=== PATIENT | male | born 1965 | race Caucasian/White ===

== ENCOUNTER 2018-12-30 20:59 | Inpatient (IN) ==
[2018-12-30] MEDS ORDERED: *HR* Heparin 5,000 UNIT/ML VIAL IVP PRN (21:20)
[2018-12-30] MEDS ORDERED: *HR* Heparin 5,000 UNIT/ML VIAL IVP ONE (21:20)
[2018-12-30] MEDS ORDERED: *HR* Ticagrelor 90 MG TABLET PO ONE (21:21)
[2018-12-30] MEDS ORDERED: Aspirin 81 MG TAB.CHEW PO STA (21:22)
[2018-12-30 21:26] LABS: Basophils # 0.1 K/mcL (0.0-0.2); Basophils % 0.5 %; Eosinophils # 0.2 K/mcL (0.0-0.6); Eosinophils % 1.6 %; Hematocrit 43.3 % (37.5-50.1); Hemoglobin 14.1 g/dL (12.9-16.9); Immature Granulocytes % 0.8 % (0-4); Lymphocytes # 2.2 K/mcL (0.6-4.6); Lymphocytes % 21.4 %; Mean Corpuscular HGB Conc 32.6 g/dL (31.6-35.5); Mean Corpuscular Hemoglobin 27.9 pg (28.0-33.3); Mean Corpuscular Volume 85.7 fL (83.0-100.0); Mean Platelet Volume 10.6 fL (9.4-12.4); Monocytes # 0.9 K/mcL (0.0-1.3); Monocytes % 8.8 %; Platelet Count 229 K/mcL (140-400); Red Blood Count 5.05 M/mcL (4.19-5.50); Segmented Neutrophils % 66.9 %; White Blood Count 10.5 K/mcL (4.3-11.1)
--- NOTE | 2018-12-30 21:29 | Emergency Department Note ---
Disposition Clinical Impression: Elevated troponin, Acute electrocardiogram changes Chest pain Qualifiers: Chest pain type: unspecified Qualified Code(s): R07.9 - Chest pain, unspecified Disposition: Admitted As Inpatient Condition: Fair Time of Disposition: 00:37 General Adult HPI - General Chief complaint: ED Arrhythmia/Palpitations Stated complaint: Chest Pain Time Seen by Provider: 12/30/18 21:09 Source: patient Mode of arrival: wheelchair Limitations: no limitations Nursing Notes Reviewed: Yes Vital Signs Reviewed: Yes - History of Present Illness HPI Narrative: Patient is a 53-year-old male with no known past medical history presents ED for evaluation of chest pain that is substernal and pressure-like associated dyspnea and diaphoresis that started 1 hour prior to arrival. States he has no other medical history however he has not seen a primary care physician in his adult life. Denies known history of any coronary artery disease. Pain is a 7 out of 10. Pain Scale: 5 - Related Data Home Medications Medication Instructions Recorded Confirmed No Known Home Drugs 12/30/18 12/30/18 Allergies Allergy/AdvReac Type Severity Reaction Status Date / Time No Known Allergies Allergy Verified 05/01/17 17:07 All systems ED: reviewed and negative except as stated. Review of Systems: As Per HPI Constitutional: Denies: fever Cardiovascular: Reports: chest pain. Denies: palpitations, dyspnea on exertion, edema Respiratory: Reports: dyspnea. Denies: cough, wheezes, hemoptysis, sputum production Gastrointestinal: Denies: abdominal pain, nausea, vomiting, diarrhea Past Medical History - Past Medical History Attestation: Yes The following information was validated with the patient. Medical history: Reports: non-contributory Surgical history: Reports: non-contributory Psychiatric history: Reports: no psych history - Social History Smoking Status: Never smoker Smokeless Tobacco Status: No Alcohol use: Reports: none Drug use: Reports: none Physical Exam CONSTITUTIONAL: A&O X 3, in no apparent distress. Anxious appearing. HEAD: Normocephalic; atraumatic EYES: PERRL, no scleral icterus NOSE: The nose is normal in appearance without rhinorrhea NECK: No JVD or distended neck veins RESP: Normal chest excursion with respiration; breath sounds clear and equal bilaterally; no wheezes, rhonchi, or rales CARD: Regular rhythm, without murmurs, rub or gallop ABD: Non-distended; non-tender, soft, without rigidity, rebound or guarding,no pulsatile mass CHEST: No pain with palpation SKIN: Normal for age and race; warm and dry without diaphoresis ; no apparent lesions EXTREMITIES: Pulses are 2 plus and equal times 4 extremities, no peripheral edema or calf muscle pain - General Limitations: no limitations Course Course Narrative: Patient presented for evaluation of chest pain given EKG findings interventional S was paged due to him not quite meeting STEMI criteria. Patient undergo evaluation for his chest pain receive a dose of aspirin as well as nitroglycerin trial. - Reevaluation(s) Reevaluation #1: I discussed the patient's case with the interventional is on-call. He is not meeting criteria for a STEMI alert however he does have obvious ST elevation and III and aVF with reciprocal changes in V2 and V3. Discussed concern that this patient may need prompt catheterization. Steel Fixer states that he agrees that these changes are concerning however not meeting STEMI catheter lab activation criteria would prefer to medically manage the patient at this time and then repeat EKG and return phone call if there is any concerning changes. Steel Fixer did request that we medically treat the patient with [place] toe, heparin and aspirin. Time: 21:26 Reevaluation #2: Is alerted to the bedside due to the patient having an episode of bradycardia in which she is in the 40s. This occurred after he had noted additional dose of n itroglycerin. His blood pressure had a systolic of 104 at the time he was diaphoretic a repeat EKG was performed which actually showed continued improvement of the ST morphology in the inferior leads and reciprocal depressions. He is alerted liter of fluids. Holding any further nitroglycerin over the course of couple minutes he had improvement of his heart rate back into the 70s. He is complaining of mild to no pain at this time. Time: 22:01 Reevaluation #3: Patient admitted for further evaluation of his chest pain. Time: 00:36 Vital Signs Temperature 99 F 12/30/18 21:02 Pulse Rate 71 12/30/18 21:02 Respiratory Rate 27 12/30/18 21:02 Blood Pressure 149/85 12/30/18 21:02 O2 Sat by Pulse Oximetry 100 12/30/18 21:02 Temperature 98.2 F 12/30/18 23:34 Pulse Rate 76 12/30/18 23:34 Respiratory Rate 15 12/30/18 23:34 Blood Pressure 139/98 12/30/18 23:34 O2 Sat by Pulse Oximetry 94 12/30/18 23:48 Oxygen Delivery Oxygen Delivery Room Air Medical Decision Making - Medical Records Medical records reviewed: Yes I reviewed the patient's medical records. - Lab Data Lab results reviewed: Yes I reviewed the patient's lab results. Result diagrams: 12/30/18 09:15 12/30/18 09:15 Lab Results 12/30/18 12/30/18 12/30/18 Range/Units 09:15 09:15 21:10 WBC 10.5 (4.3-11.1) K/mcL RBC 5.05 (4.19-5.50) M/mcL Hgb 14.1 (12.9-16.9) g/dL Hct 43.3 (37.5-50.1) % MCV 85.7 (83.0-100.0) fL MCH 27.9 L (28.0-33.3) pg MCHC 32.6 (31.6-35.5) g/dL RDW 14.0 (11.5-14.5) % Plt Count 229 (140-400) K/mcL MPV 10.6 (9.4-12.4) fL Immature Gran % 0.8 (0-4) % Seg Neutrophils % 66.9 % Lymphocytes % 21.4 % Monocytes % 8.8 % Eosinophils % 1.6 % Basophils % 0.5 % Neutrophils # 7.0 (1.6-8.9) K/mcL Lymphocytes # 2.2 (0.6-4.6) K/mcL Monocytes # 0.9 (0.0-1.3) K/mcL Eosinophils # 0.2 (0.0-0.6) K/mcL Basophils # 0.1 (0.0-0.2) K/mcL PT 11.0 (9.4-12.1) Seconds INR 1.0 Heparin Anti-Xa, Unfract 0.04 L (0.30-0.70) IU/mL Sodium 137 (136-145) mEq/L Potassium 4.2 (3.5-5.1) mEq/L Chloride 103 (98-107) mEq/L Carbon Dioxide 23 (23-29) mEq/L BUN 13 (6-20) mg/dL Creatinine 1.00 (0.70-1.30) mg/dL Est GFR ( Amer) > 60 (> 60) Est GFR (Non-Af Amer) > 60 (> 60) BUN/Creatinine Ratio 13 (6-26) Glucose 116 H (70-105) mg/dL Calculated Osmolality 285 (280-300) Calcium 9.5 (8.6-10.3) mg/dL Troponin I 0.18 H* (< 0.04) ng/mL - Radiology Data Radiology results reviewed: Yes I reviewed the patient's radiology results. Chest X-Ray 12/30/18 21:52 IMPRESSION: No acute abnormality identified. D/ / Aki Rao MD / Aki Rao MD Interpreting Provider: Aki Rao MD - EKG Data EKG #1 EKG attestation: Yes I reviewed and interpreted this EKG. EKG results narrative: EKG done at 21:40 shows sinus rhythm at a rate 74 bpm. No axis. Intervals within normal limits. EKG #2 EKG attestation: Yes I reviewed and interpreted this EKG. EKG results narrative: EKG done at 21:40 shows sinus rhythm at a rate 74 bpm. No axis. Intervals within normal limits. EKG #3 EKG attestation: Yes I reviewed and interpreted this EKG. EKG results narrative: EKG done at 21:40 shows sinus rhythm at a rate 74 bpm. No axis. Intervals within normal limits. EKG #4 EKG attestation: Yes I reviewed and interpreted this EKG. EKG results narrative: EKG done at 21:40 shows sinus rhythm at a rate 74 bpm. No axis. Intervals within normal limits.
[2018-12-30] MEDS ORDERED: Heparin 25,000 UNIT/250 ML D5W 25,000 UNIT/250 ML IV.SOLN IVC SCH (21:30)
[2018-12-30] MEDS: Nitroglycerin 0.4 MG TAB.SUBL SL SCH ×3 (21:40→22:12)
[2018-12-30 21:46] LABS: BUN/Creatinine Ratio 13 (6-26); Blood Urea Nitrogen 13 mg/dL (6-20); Calcium 9.5 mg/dL (8.6-10.3); Carbon Dioxide 23 mEq/L (23-29); Chloride 103 mEq/L (98-107); Glucose 116 mg/dL (70-105); Osmolality,Calculated 285 (280-300); Potassium 4.2 mEq/L (3.5-5.1); Sodium 137 mEq/L (136-145); eGFR For African Americans > 60 (> 60); eGFR For Non-African Americans > 60 (> 60)
[2018-12-30 21:49] LABS: Troponin I 0.18 ng/mL (< 0.04)
[2018-12-30 21:53] LABS: Heparin anti-factor XA UFH 0.04 IU/mL (0.30-0.70)
[2018-12-30] MEDS ORDERED: 0.9 % Sodium Chloride 1,000 ML ONE (21:54)
--- NOTE | 2018-12-30 22:24 | Emergency Department Note ---
Disposition Clinical Impression: Elevated troponin, Acute electrocardiogram changes Chest pain Qualifiers: Chest pain type: unspecified Qualified Code(s): R07.9 - Chest pain, unspecified Disposition: Admitted As Inpatient Condition: Fair Referrals: NONE,PCP [Primary Care Provider] - Forms: ED Satisfaction Letter Time of Disposition: 22:33 General Adult HPI - General Chief complaint: ED Arrhythmia/Palpitations Stated complaint: Chest Pain Time Seen by Provider: 12/30/18 21:09 Source: patient Mode of arrival: wheelchair Limitations: no limitations Nursing Notes Reviewed: Yes Vital Signs Reviewed: Yes - History of Present Illness Pain Scale: 3 - Related Data Home Medications Medication Instructions Recorded Confirmed No Known Home Drugs 12/30/18 12/30/18 Allergies Allergy/AdvReac Type Severity Reaction Status Date / Time No Known Allergies Allergy Verified 05/01/17 17:07 Constitutional: Denies: fever Cardiovascular: Reports: chest pain. Denies: palpitations, dyspnea on exertion, edema Respiratory: Reports: dyspnea. Denies: cough, wheezes, hemoptysis, sputum production Gastrointestinal: Denies: abdominal pain, nausea, vomiting, diarrhea Past Medical History - Past Medical History Medical history: Reports: non-contributory Surgical history: Reports: non-contributory Psychiatric history: Reports: no psych history - Social History Smoking Status: Never smoker Smokeless Tobacco Status: No Alcohol use: Reports: none Drug use: Reports: none Physical Exam - General Limitations: no limitations Course Vital Signs Temperature 99 F 12/30/18 21:02 Pulse Rate 71 12/30/18 21:02 Respiratory Rate 27 12/30/18 21:02 Blood Pressure 149/85 12/30/18 21:02 O2 Sat by Pulse Oximetry 100 12/30/18 21:02 Temperature 99 F 12/30/18 21:02 Pulse Rate 73 12/30/18 22:07 Respiratory Rate 20 12/30/18 21:51 Blood Pressure 139/82 12/30/18 22:13 O2 Sat by Pulse Oximetry 96 12/30/18 22:07 Oxygen Delivery Oxygen Delivery Nasal Cannula Medical Decision Making - Lab Data Lab results reviewed: Yes I reviewed the patient's lab results. Result diagrams: 12/30/18 09:15 12/30/18 09:15 Lab Results 12/30/18 12/30/18 12/30/18 Range/Units 09:15 09:15 21:10 WBC 10.5 (4.3-11.1) K/mcL RBC 5.05 (4.19-5.50) M/mcL Hgb 14.1 (12.9-16.9) g/dL Hct 43.3 (37.5-50.1) % MCV 85.7 (83.0-100.0) fL MCH 27.9 L (28.0-33.3) pg MCHC 32.6 (31.6-35.5) g/dL RDW 14.0 (11.5-14.5) % Plt Count 229 (140-400) K/mcL MPV 10.6 (9.4-12.4) fL Immature Gran % 0.8 (0-4) % Seg Neutrophils % 66.9 % Lymphocytes % 21.4 % Monocytes % 8.8 % Eosinophils % 1.6 % Basophils % 0.5 % Neutrophils # 7.0 (1.6-8.9) K/mcL Lymphocytes # 2.2 (0.6-4.6) K/mcL Monocytes # 0.9 (0.0-1.3) K/mcL Eosinophils # 0.2 (0.0-0.6) K/mcL Basophils # 0.1 (0.0-0.2) K/mcL PT 11.0 (9.4-12.1) Seconds INR 1.0 Heparin Anti-Xa, Unfract 0.04 L (0.30-0.70) IU/mL Sodium 137 (136-145) mEq/L Potassium 4.2 (3.5-5.1) mEq/L Chloride 103 (98-107) mEq/L Carbon Dioxide 23 (23-29) mEq/L BUN 13 (6-20) mg/dL Creatinine 1.00 (0.70-1.30) mg/dL Est GFR ( Amer) > 60 (> 60) Est GFR (Non-Af Amer) > 60 (> 60) BUN/Creatinine Ratio 13 (6-26) Glucose 116 H (70-105) mg/dL Calculated Osmolality 285 (280-300) Calcium 9.5 (8.6-10.3) mg/dL Troponin I 0.18 H* (< 0.04) ng/mL - Radiology Data Radiology results reviewed: Yes I reviewed the patient's radiology results. Chest X-Ray 12/30/18 21:52 IMPRESSION: No acute abnormality identified. D/ / Aki Rao MD / Aki Rao MD Interpreting Provider: Aki Rao MD - EKG Data EKG #1 EKG attestation: Yes I reviewed and interpreted this EKG. EKG results narrative: 21:53 Fourth EKG showed sinus rhythm with ventricular rate of 61. Resolution of inferior ST elevation but persistent ST depressions in V1 through V3 and mild ST elevation in V6. EKG #2 EKG attestation: Yes I reviewed and interpreted this EKG. EKG results narrative: 21:53 Fourth EKG showed sinus rhythm with ventricular rate of 61. Resolution of inferior ST elevation but persistent ST depressions in V1 through V3 and mild ST elevation in V6. EKG #3 EKG attestation: Yes I reviewed and interpreted this EKG. EKG results narrative: 21:53 Fourth EKG showed sinus rhythm with ventricular rate of 61. Resolution of inferior ST elevation but persistent ST depressions in V1 through V3 and mild ST elevation in V6. EKG #4 EKG attestation: Yes I reviewed and interpreted this EKG. EKG results narrative: 21:53 Fourth EKG showed sinus rhythm with ventricular rate of 61. Resolution of inferior ST elevation but persistent ST depressions in V1 through V3 and mild ST elevation in V6. Critical Care Time Critical Care Time: Yes Total Critical Care Time: 60 Attestation: Critical care performed: Time is exclusive of separately billable procedures. Time includes: direct patient care, patient reassessment, coordination of patient care, interpretation of data (laboratory data, radiology data, and respiratory data), review of patient's medical records, medical consultation and documentation of patient care. Procedures included in critical care time: Procedures excluded from critical care time: Attestation Statement - Attestation Attestation: IaMndo MD, personally evaluated this patient and discussed their management with the resident physician. I reviewed the resident's note and agree with the documented findings, medical decision making, and plan of care. I reviewed the residents documentation and agree with the residents assessment and plan of care. I have personally had face to face time with the patient. I personally supervised and was present for the cazares/critical portions of the following procedures completed by the resident: EKG interpretation. 53-year-old male presents to the emergency department with a complaint of severe substernal chest pain which started approximately 1 hour prior to arrival. Onset of pain was at rest. No radiation the pain. He does complain of shortness of breath with the pain. No diaphoresis. No nausea with the pain however he states before the pain started he did have an episode where he got nauseated and vomited one time. Patient has no prior cardiac history. No history of hypertension or diabetes. Patient rates the pain an 8 out of 10. On examination patient is a well-developed well-nourished male in no acute distress but does appear to be in moderate discomfort. He is alert and oriented 3. There is no cyanosis or diaphoresis. Chest is nontender to palpation. Breath sounds are equal bilaterally with scattered bilateral inspiratory and expiratory wheezes but with good air movement. Heart regular rate and rhythm. Abdomen soft and nontender with normal bowel sounds. No pedal edema. Multiple EKGs obtained and documented above. EKGs are very concerning for acute [place] but did not meet STEMI criteria. EKGs were reviewed by the locker attendant, Dr. Palomo, and he recommended admission and treating the patient medically. Labs reviewed. Troponin 0.18. Chest x-ray negative. Patient was started on heparin infusion. The hospitalist, Dr. Muñoz, was consulted and accepted admission of the patient.
[2018-12-30] MEDS ORDERED: Morphine Sulfate 2 MG/ML SYRINGE IVP PRN (23:42)
--- NOTE | 2018-12-30 23:45 | Internal Med History&Physical ---
Date of Encounter: 12/30/18 Time of Encounter: 23:44 Internal Medicine - H&P: HPI Chief complaint: chest pain Admitted From: Home Plans for Post Hospital Care: Home History of present illness: Omid Mcneill is a 53-year-old obese man with no known past medical history as he reportedly has not undergone medical evaluation in his adult life who presented to the emergency room with a complaint of substernal chest pain that he describes as pressure-like that commenced about one hour prior to arrival to the ER associated with dyspnea and diaphoresis. He appeared hemodynamically stable on arrival but his initial EKG showed ST segment elevations in DIII, aVF and V6 with reciprocal depressions in the anterior leads. His serum troponin was 0.18. These findings were concerning for a STEMI and transportation logistics internship hospice liaison was contacted to evaluate the EKG who did state that these changes were concerning but seemingly not sufficient for activation of the STEMI alert. He advised continued monitoring and medical management in the interim and to be contacted if there are any changes. He was given loading dose of aspirin and ticagrelor with heparin drip initiated. He was also given 2 sublingual doses of nitroglycerin which results his chest pain however he subsequently developed a lowering of his systolic blood pressure transiently. 2 follow-up EKGs were done which showed an improvement of the ST segment elevations. He is admitted for further care. He reports a family history of coronary artery disease requiring CABG in both parents and 1 sister. He denies tobacco and illicit drug use. Vitals: Reviewed General: Obese man lying in bed in no acute distress. Skin: Flushed face. Warm and moist. HEENT: Moist mucous membranes. No conjunctivae pallor. Neck: No lymphadenopathy. No JVD. No carotid bruits. No palpable thyroid. Chest: Normal thoracic expansion. Normal breath sounds. Clear to auscultation. Heart: Normal S1 & S2; rhythmic. No rubs or murmurs. Abdomen: Non-distended, soft and non-tender to palpation. No peritoneal reaction. Extremities: No clubbing, cyanosis or edema. No calf tenderness. Normal distal pulses. Neurological: Awake, alert and oriented to person, place and time. No focal deficits. Psych: Affect appropriate. Assessment/Plan 1. Acute coronary syndrome: As evidenced by the clinical presentation coupled with troponin elevation and concerning EKG changes. Dual antiplatelet therapy has been started. Will commence high intensity statin as well. Continue heparin drip. Serial EKGs. If chest pain recurs and is rebellious to analgesics will contact interventional cardiology for urgency in evaluation. Keep NPO. 2. Obesity: Counseled and educated on therapeutic lifestyle changes for weight loss as it will be of benefit in controlling comorbidities. Food And Beverage Server evaluation advised. Past Med Surg Social Fam HX - Past Medical History Medical history: non-contributory Psychiatric history: no psych history - Past Surgical History Surgical History: non-contributory - Social History Smoking Status: Never smoker Smokeless Tobacco Status: No Alcohol use: none Drug use: none Internal Medicine - H&P: Meds No Known Home Drugs 12/30/18 [History] Allergy/AdvReac Type Severity Reaction Status Date / Time No Known Allergies Allergy Verified 05/01/17 17:07 All Systems PM: A 10-system review of systems was performed and is negative for pertinent findings except as documented above in the HPI. - Constitutional Vitals: Temp Pulse Resp BP Pulse Ox 98.2 F 76 15 139/98 97 12/30/18 23:34 12/30/18 23:34 12/30/18 23:34 12/30/18 23:34 12/30/18 23:04 Exam: . Internal Med - H&P Results - Labs CBC & Chem 7: 12/30/18 09:15 12/30/18 09:15 Labs: Short CBC 12/30/18 Range/Units 09:15 WBC 10.5 (4.3-11.1) K/mcL Hgb 14.1 (12.9-16.9) g/dL Hct 43.3 (37.5-50.1) % Plt Count 229 (140-400) K/mcL Neutrophils # 7.0 (1.6-8.9) K/mcL BMP 12/30/18 09:15 Sodium 137 Potassium 4.2 Chloride 103 Carbon Dioxide 23 BUN 13 Creatinine 1.00 Glucose 116 H Calcium 9.5 Cardiac Enzymes 12/30/18 Range/Units 09:15 Troponin I 0.18 H* (< 0.04) ng/mL - Impressions ITS Impressions Chest X-Ray 12/30/18 21:52 IMPRESSION: No acute abnormality identified. D/ / Aki Rao MD / Aki Rao MD Interpreting Provider: Aki Rao MD - Time Spent With Patient Total time spent is greater than 50% in coordination of care (as documented) at patient's floor/unit and/or counseling patient:
[2018-12-31 00:57] LABS: Amphetamine Screen,Urine Negative ng/mL (Cutoff=1000); Barbiturate Screen,Urine Negative ng/mL (Cutoff=200); Benzodiazepines Screen,Urine Negative ng/mL (Cutoff=200); Cannabinoid Screen,Urine Negative ng/mL (Cutoff = 50); Cocaine Screen,Urine Negative ng/mL (Cutoff= 300); Opiate Screen,Urine Negative ng/mL (Cutoff=300); Phencyclidine Screen,Urine Negative ng/mL (Cutoff=25)
[2018-12-31 04:11] LABS: Chol/HDL Ratio 5.1 (0-4.9)
[2018-12-31] MEDS: *HR* Heparin 5,000 UNIT/ML VIAL IVP PRN ×2 (04:17→10:11)
[2018-12-31 06:45] LABS: Estimated Average Glucose 120 mg/dl
[2018-12-31] MEDS: Aspirin 81 MG TAB.CHEW PO SCH (08:54)
--- NOTE | 2018-12-31 10:35 | Cardiology Consult Note ---
<Jennifer Sullivan - Last Filed: 12/31/18 10:59> Date of Encounter: 12/31/18 Time of Encounter: 09:15 Assessment and Plan (1) ACS (acute coronary syndrome) Current Visit: Yes Status: Acute Troponins .18, 2.48, 11.42. Chest pain is a dull ache at time of eval. Echo pending. EKG with ST changes, reviewed by Dr. Palomo, did not meet STEMI criteria. States CP began around 8pm yesterday associated with vomiting, diaphoresis and SOB. [place] like he was "punched in the chest." Denies cardiac hx- admittedly has not had any medical evals in his adult life. Does report mother and father required CABG. Given symptoms, elevated troponins and EKG changes, recommending [facility] today. A/R/B discussed with pt, he is agreeable. Discussion w patient/family: The assessment and plan as outlined above was discussed with the patient and/or family members who expressed understanding and agreement. All questions were answered. Thank you for involving us in the care of your patient. Please call with any questions. The above assessment and plan will be discussed with Dr. Scherer and I will make changes as necessary. History of Present Illness Consult date: 12/31/18 Consult reason: ACS History of present illness: Mr. Mcneill is a 53 year old male with no known PMH as he reportedly has not undergone medical evaluation in his adult life who presented to the ER with a complaint of substernal chest pain that he describes as pressure-like that commenced about one hour prior to arrival to the ER associated with dyspnea, vomiting x1 and diaphoresis. His initial EKG showed ST segment elevations in DIII, aVF and V6 with reciprocal depressions in the anterior leads. His serum troponin was 0.18. These findings were concerning for a STEMI and club waiter/waitress fashion artist was contacted to evaluate the EKG who did state that these changes were concerning but seemingly not sufficient for activation of the STEMI alert. He advised continued monitoring and medical management in the interim and to be contacted if there are any changes. He was given loading dose of aspirin and ticagrelor with heparin drip initiated. He was also given 2 sublingual doses of nitroglycerin which results his chest pain however he subsequently developed a lowering of his systolic blood pressure transiently. 2 follow-up EKGs were done which showed an improvement of the ST segment elevations. He is admitted for further care. He reports a family history of coronary artery disease requiring CABG in both parents and 1 sister. He denies tobacco and illicit drug use. Past Med Surg Social Fam HX - Past Medical History Medical history: non-contributory Psychiatric history: no psych history - Past Surgical History Surgical History: non-contributory - Social History Smoking Status: Never smoker Smokeless Tobacco Status: No Alcohol use: none Drug use: none - Family History Mother Hx Family Cardiac Disorders: Yes (CABG) Father Hx Family Cardiac Disorders: Yes (CABG) Medications and Allergies No Known Home Drugs 12/30/18 [History] Allergy/AdvReac Type Severity Reaction Status Date / Time No Known Allergies Allergy Verified 05/01/17 17:07 All Systems Review: The remainder of the systems were reviewed and are negative - Cardiovascular Cardiovascular: as per HPI Physical Examination Vital Signs, Last 4 Hours Temp Pulse Resp BP Pulse Ox 12/31/18 07:28 98.5 F 69 16 145/84 92 General: Conversant, No Apparent Distress Cardiac: Reg Rate and Rhythm, Normal S1 and S2, No Murmur Lungs: Normal Breath Sounds, No Wheeze, Rales, Rhonchi Neuro: Alert and responsive, No focal deficits noted Abdomen: Soft, Non-Tender Skin: No rashes noted on visualized skin Musculoskeletal: No Chest Wall Tenderness Extremities: No Clubbing, No Cyanosis, No Edema, Normal Pulses Results 12/30/18 09:15 12/30/18 09:15 Lab Results 12/30/18 12/30/18 12/30/18 09:15 09:15 21:10 WBC 10.5 Hgb 14.1 Hct 43.3 Plt Count 229 INR 1.0 Sodium 137 Potassium 4.2 Chloride 103 Carbon Dioxide 23 BUN 13 Creatinine 1.00 Glucose 116 H Calcium 9.5 Troponin I 0.18 H* 12/31/18 12/31/18 03:13 09:25 WBC Hgb Hct Plt Count INR Sodium Potassium Chloride Carbon Dioxide BUN Creatinine Glucose Calcium Troponin I 2.48 H* 11.42 H* - Imaging and Cardiology Echo: pending Other Results: 12HR tele reviewed: average HR 87, NSR, no events noted. - EKG Interpretation EKG results cardiology: personally reviewed (ST changes noted, reviewed by Dr. Palomo- did not meet STEMI criteria.) Consult Discharge Plan - Plan Referrals: NONE,PCP [Primary Care Provider] - HAS-BLED Score - Score Medication usage predisposing to bleeding: Antiplatelet agents, NSAIDs, Anticoagulants Score: 1 <Carito Scherer - Last Filed: 12/31/18 11:46> Date of Encounter: 12/31/18 - Attending Attestation I examined this patient and my medical decision-making was reviewed with the ASSOCIATE PROFESSOR PHYSICIAN. I agree with the documented findings, disposition and treatment plan as d escribed. Mr. Mcneill presents with ACS. Troponin continues to rise. Patient with persistent pain, now 05/28. Recommend proceeding with [facility]. The R/B/A of the procedure were discussed with the patient who expressed understanding and has decided to proceed. No upcoming elective procedures. Normal renal function. Full Code. Assessment and Plan Discussion w patient/family: The assessment and plan as outlined above was discussed with the patient and/or family members who expressed understanding and agreement. All questions were answered. Thank you for involving us in the care of your patient. Please call with any questions. History of Present Illness History of present illness: Mr. Mcneill is a 53 year old male All Systems Review: The remainder of the systems were reviewed and are negative Physical Examination Vital Signs, Last 4 Hours Temp Pulse Resp BP Pulse Ox 12/31/18 11:36 98.4 F 76 18 124/85 92 Results 12/30/18 09:15 12/30/18 09:15 Lab Results 12/30/18 12/30/18 12/30/18 09:15 09:15 21:10 WBC 10.5 Hgb 14.1 Hct 43.3 Plt Count 229 INR 1.0 Sodium 137 Potassium 4.2 Chloride 103 Carbon Dioxide 23 BUN 13 Creatinine 1.00 Glucose 116 H Calcium 9.5 Troponin I 0.18 H* 12/31/18 12/31/18 03:13 09:25 WBC Hgb Hct Plt Count INR Sodium Potassium Chloride Carbon Dioxide BUN Creatinine Glucose Calcium Troponin I 2.48 H* 11.42 H*
--- NOTE | 2018-12-31 11:09 | Internal Med Progress Note ---
Hospitalist Progress Note - Encounter Date of Encounter: 12/31/18 Time of Encounter: 09:45 - Subjective Interval History: H&P reviewed. 53-year-old male with no known past medical history was admitted overnight due to chest pain and was found to have NSTEMI with troponin 0.18 - 2.48. Initially there was a concern for ST elevations in III, AVF, and V6 but was deeemed by stock preparation operator that these changes were not quite sufficient for STEMI alert. Today patient reports improvement in his chest pain, denies any nausea/vomiting, diaphoresis, lightheadedness,, or palpitation. No fever overnight. - Exam Vitals: Temp Pulse Resp BP Pulse Ox 98.5 F 69 16 145/84 92 12/31/18 07:28 12/31/18 07:28 12/31/18 07:28 12/31/18 07:28 12/31/18 07:28 Exam: General: Alert and oriented, not in acute distress. Cardiovascular:Normal S1 & S2, No JVD. Pulse regular. Lungs: clear to auscultation, no wheezes/rales Abdomen:Soft, non-tender, no rigidity. Extremities:No deformity or swelling Neurological:Normal cognition and motor skills. Non-focal Skin:Normal color, no rash, no lesions. - Assessment and Plan (1) ACS (acute coronary syndrome) Current Visit: Yes Status: Acute Assessment and Plan: presented with CP and found to have trop 0.18-2.5 EKG did not meet criteria for STEMI hence was started on DAPT and hep gtt overnight with improvement in his chest pain subsequent troponin continues trend up to 11.4 Continue hep gtt, dual-antiplatelets, and statin. Add soo andrse echocardiogram appreciate cardiology input, for [facility] today (2) HLD (hyperlipidemia) Current Visit: Yes Status: Chronic Assessment and Plan: Started on Lipitor as above (3) DVT prophylaxis Current Visit: Yes Status: Acute Assessment and Plan: On heparin drip - Time Spent with Patient Total time spent is greater than 50% in coordination of care (as documented) at patient's floor/unit and/or counseling patient: 25 - 35 minutes Plan of Care Discussed with: patient Internal Medicine: Result - Labs CBC & Chem 7: 12/30/18 09:15 12/30/18 09:15 Labs: Short CBC 12/30/18 Range/Units 09:15 WBC 10.5 (4.3-11.1) K/mcL Hgb 14.1 (12.9-16.9) g/dL Hct 43.3 (37.5-50.1) % Plt Count 229 (140-400) K/mcL Neutrophils # 7.0 (1.6-8.9) K/mcL BMP 12/30/18 09:15 Sodium 137 Potassium 4.2 Chloride 103 Carbon Dioxide 23 BUN 13 Creatinine 1.00 Glucose 116 H Calcium 9.5 Cardiac Enzymes 12/30/18 12/31/18 12/31/18 Range/Units 09:15 03:13 09:25 Troponin I 0.18 H* 2.48 H* 11.42 H* (< 0.04) ng/mL - ABG Interpretation ABG results: PT/INR, D-dimer PT 11.0 Seconds (9.4-12.1) 12/30/18 21:10 - Impressions Impressions Chest X-Ray 12/30/18 21:52 IMPRESSION: No acute abnormality identified. D/ / Aki Rao MD / Aki Rao MD Interpreting Provider: Aki Rao MD Consult Discharge Plan - Plan Referrals: NONE,PCP [Primary Care Provider] - (2) HLD (hyperlipidemia) Qualifiers: Hyperlipidemia type: mixed hyperlipidemia Qualified Code(s): E78.2 - Mixed hyperlipidemia
[2018-12-31] MEDS ORDERED: *HR* Heparin 10,000 UNIT/10 ML VIAL ONE (11:40)
[2018-12-31] MEDS ORDERED: Iopamidol 125 ML INFUS..BTL ONE ×3 (11:40→12:55)
[2018-12-31] MEDS ORDERED: 0.9 % Sodium Chloride 1,000 ML ONE ×2 (11:40→11:53)
[2018-12-31] MEDS ORDERED: Nitroglycerin 1,000 MCG/10 ML VIAL IV ONE (11:40)
[2018-12-31] MEDS ORDERED: Heparin 1,000 UNITS/500 mL 500 ML ONE (11:40)
[2018-12-31] MEDS ORDERED: Verapamil 5 MG/2 ML VIAL ONE (11:40)
--- NOTE | 2018-12-31 11:48 | Pre-Sedation Evaluation ---
Pre-sedation evaluation - Pre-sedation checklist Date of procedure: 12/31/18 Procedure: [facility] Recent Vitals: Last Vital Signs Temp 98.4 F 12/31/18 11:36 Pulse 76 12/31/18 11:36 Resp 18 12/31/18 11:36 BP 124/85 12/31/18 11:36 Pulse Ox 92 12/31/18 11:36 H&P (including ROS) documented in medical record: Yes Previous reaction to sedatives/anesthetics: No Dietary Status: No solid food in preceding 4 hrs and no liquid in preceding 2 hrs Airway Assessment: Patient can open mouth completely, TMJ function normal ASA Classification *see protocol: CLASS II-Mild systemic disease, [id number] to any of the above to indicate emergent Plan of Care: Pt appropriate candidate for procedure/moderate/conscious sedation, Risks/benefits of procedure/sedation discussed w/ patient/family, If not NPO; Risk of intake outweiged by necessity to perform procedure Cardiac Registry (Cardio Only) - Functional Capacity Functional Capacity: >=4 METS with symptoms - Clincal Frailty Scale Clinical Frailty Scale: Managing Well
[2018-12-31] MEDS ORDERED: *HR* FentaNYL (PF) 100 MCG/2 ML VIAL ONE (11:53)
[2018-12-31] MEDS ORDERED: *HR* Midazolam HCl 2 MG/2 ML VIAL ONE (11:53)
[2018-12-31] MEDS ORDERED: *HR* Ticagrelor 90 MG TABLET ONE (13:11)
[2018-12-31] MEDS ORDERED: Acetaminophen 325 MG TABLET PO PRN (13:18)
[2018-12-31] MEDS ORDERED: Ondansetron 4 MG/2 ML VIAL IVP PRN (13:18)
--- NOTE | 2018-12-31 13:21 | Event Note ---
Date of Encounter: 12/31/18 Time of Encounter: 13:00 - Cardiology Event Note PCI mLCx and mLAD DONALD x1 each. EF normal. 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
--- NOTE | 2018-12-31 13:31 | Invasive Diagnostic Lab Proc ---
Name: Omid Mcneill Date of Study: 12/31/2018 Date: 1965 Ht: 68.9in Medical Record#: [id number] Age: 53 Wt: 238.10lb Gender: Male BSA: 2.22 Order #: [id number] BMI: 35.27 Physicians Procedure Physician: Lewis Palomo MD, [facility] Referring MD: Referring MD: Staff Name Position Time In Esteban Grace RN Monitor 12:00 PM Ginna Gaviria RT (R) Scrub 12:00 PM Trenton Stewart RN Boat Loader 12:00 PM Procedures Performed Procedure L HRT ARTERY/VENTRICLE ANGIO Pre-Procedure Checklist Informed consent is complete signed and on chart. H&P is on chart. ID band is on and ID verified with patient. Patient NPO for procedure The procedure was described for the patient and questions were answered. Blood Pressure: 124/85 ECG is on chart. Rhythm: NSR Plan of Care Patient will tolerate the procedure without complications. Adequate level of comfort will be maintained. Hemodynamics will remain stable Patient will recover from procedure without complications. Respiratory function will be maintained. Cardiac rhythm will remain stable. Patient temperature will be maintained. Patient and/or family have verbalized understanding of the procedure. Patient Education Intravenous Access Time IV Size Location DC'd Fluid/Drip Rate Units RN 18g 1 1/4" Patent On Arrival Lt Antecubital 18g 1 1/4" Patent On Arrival Rt Antecubital Allergies No Known Allergies Vital Signs Time BP (mmHg) HR (bpm) O2 Sat. RR (bpm) LOC 124 / 85 76 92 % 18 5 = Fully awake and oriented or at pre-proc level 12:10 PM / % 5 = Fully awake and oriented or at pre-proc level 12:10 PM / % 4 = Oriented but drowsy 12:25 PM / % 4 = Oriented but drowsy 12:41 PM / % 4 = Oriented but drowsy 12:56 PM / % 5 = Fully awake and oriented or at pre-proc level 12:13 PM 127 / 93 80 92 % 19 12:18 PM 126 / 87 100 90 % 23 12:23 PM 117 / 86 91 92 % 21 12:28 PM 110 / 71 91 89 % 21 12:33 PM 112 / 77 87 91 % 21 12:38 PM 115 / 78 93 92 % 21 12:43 PM 115 / 80 89 92 % 22 12:48 PM 105 / 65 75 90 % 24 12:53 PM 101 / 65 72 92 % 24 12:58 PM 103 / 69 76 93 % 24 01:03 PM 107 / 74 75 91 % 22 01:08 PM 126 / 73 76 96 % 26 01:13 PM 110 / 73 80 94 % 24 01:18 PM 112 / 73 76 94 % Procedural Medications Time Medication Dose Units Method Given By 12:10 PM Oxygen 2 L/min nasal cannula Trenton Stewart RN 12:14 PM Versed 2 mg Intravenous Trenton Stewart RN 12:14 PM Fentanyl 50 mcg Intravenous Trenton Stewart RN 12:23 PM Lidocaine 2% 0.5 ml Subcutaneous Lewis Palomo MD, FAC 12:26 PM Heparin 2000 units Nitroglycerin 200 mcg Verapamil 2.5 mg Intraarterial Lewis Palomo MD, FACC 12:43 PM Heparin 2000 units Intravenous Trenton Stewart RN 12:45 PM Nitroglycerin 100 mcg Intracoronary Lewis Palomo MD 12:47 PM Nitroglycerin 200 mcg Intracoronary Lewis Palomo MD 01:18 PM Brilinta 180 mg Orally Trenton Stewart RN ASA Classification: CLASS II- Mild systemic disease (i.e. well-controlled diabetes, hypertension, asthma, cigarette smoking) Sp Score Preprocedure Postprocedure Activity 2- Moves 4 extremities sustained head lift Activity 2- Moves 4 extremities sustained head lift Circulation 2- SBP +/= 20 points of pre-anesthetic level Circulation 2- SBP +/= 20 points of pre-anesthetic level Consciousness 2- Awake and alert oriented x 3 Consciousness 2- Awake and alert oriented x 3 O2 Saturation 2- Able to maintain O2 satruation of 92% on room air O2 Saturation 2- Able to maintain O2 satruation of 92% on room air Respiratory 2- Able to deep breathe and cough well Respiratory 2- Able to deep breathe and cough well Total Score 10 Total Score 10 Contrast Agent: Isovue Diagnostic Contrast: 224 ml Total Contrast: 224 ml Fluoro Dose: 63 mGy Activated Clotting Time Time Seconds to Clot 12:43 PM 209 Procedure Log Time Note Enter By 12:05 PM Pt arrived to clinical laboratory scientist 2 at 12:05 oparker 12:05 PM Physician arrived 12:05 oparker 12:06 PM Bertin and chelsea completed oparker 12:06 PM Sign in performed according to hospital policy. Informed consent was obtained. oparker 12:09 PM CathStat 12:10 PM Esteban Grace RN Position: Monitor Time in: 12:00 oparker 12:10 PM Ginna Gaviria RT (R) Position: Scrub Time in: 12:00 oparker 12:10 PM Trenton Stewart RN Position: Boat Loader Time in: 12:00 oparker 12:10 PM Patient charges- Angio tray pack, Navilyst 3mm J, Pulse Oximetry and ACIST tubing and transducer oparker 12:10 PM Procedure start 12:10 oparker 12:10 PM Time: 12:10 Patient comfortable and pain free: Yes oparker 12:10 PM Time: 12:10LOC: 5 = Fully awake and oriented or at pre-proc level oparker 12:11 PM Time: 12:10 Oxygen on at 2 L/min per nasal cannula by Trenton Stewart RN oparker 12:12 PM Vitals capture started with the following parameters, Patient=Adult, Interval=5 min, Initial Atprummb=721 mmHg, Deflation Rate=3 mmHg, Cuff placed on Right Arm 12:13 PM HR=80 bpm, OHED=072/93 mmhg, SpO2=92.0 %, Resp=19 B/min 12:13 PM Recorded ECG: HR=80 Condition=Condition 1 12:13 PM Hair removed from procedure site in procedure lab using clippers. Right wrist and Right groin prepped with Chloraprep by Trenton Stewart RN, then patient was draped. Skin intact. oparker 12:14 PM Time: 12:14 Versed 2 mg Intravenous Given by Trenton Stewart RN oparker 12:14 PM Time: 12:14 Fentanyl 50 mcg Intravenous Given by Trenton Stewart RN oparker 12:16 PM ASA Class CLASS II- Mild systemic disease (i.e. well-controlled diabetes, hypertension, asthma, cigarette smoking) oparker 12:18 PM NO=796 bpm, NRBS=923/87 mmhg, SpO2=90.0 %, Resp=23 B/min 12:20 PM Pressure channel 1 zero failed. 12:21 PM Pressure channel 1 zeroed. 12:23 PM Time out was performed according to hospital policy. Conscious sedation and anesthesia was achieved (see medication log with in this report above) oparker 12:23 PM HR=91 bpm, YEHV=281/86 mmhg, SpO2=92.0 %, Resp=21 B/min 12:24 PM Time: 12:23 0.5 ml Lidocaine 2% to right radial Subcutaneous Given by Lewis Palomo MD, [facility] oparker 12:25 PM Access obtained by percutaneous puncture. 6Fr 10cm Terumo Glidesheath sheath placed in right Radial artery. [id number] oparker 12:25 PM Time: 12:10LOC: 4 = Oriented but drowsy oparker 12:25 PM Time: 12:10 Patient comfortable and pain free: Yes oparker 12:26 PM Time: 12:26 Patient given 2000 units Heparin, 200 mcg Nitroglycerin, and 2.5 mg Verapamil Intraarterial by Lewis Palomo MD, [facility]. This is given to reduce risk of vessel spasm and thrombosis. oparker 12:26 PM 0.035 260cm Navilyst 3mmJ wire [id number] oparker 12:26 PM 5Fr TIG catheter inserted over the wire [facility] oparker 12:27 PM LCA angiography performed in multiple views. oparker 12:28 PM Recorded Pressure: Ao, HR=91, Condition=Condition 1 (Aorta) Ao 86/71/79 12:28 PM HR=91 bpm, NSNM=833/71 mmhg, SpO2=89.0 %, Resp=21 B/min 12:30 PM Pressure channel 1 zeroed. 12:30 PM Recorded Pressure: LV, HR=93, Condition=Condition 1 (Left Ventricle) LV 107/12/24 12:31 PM Recorded Pressure: LV, Ao, HR=98, Condition=Condition 1 (Left Ventricle) LV 114/17/40, (Aorta) Ao 113/84/97 12:31 PM Catheter crossed the aortic valve and was selectively placed in the left ventricle. Pressures recorded on pullback for left heart catheterization. oparker 12:32 PM Catheter removed oparker 12:33 PM HR=87 bpm, DJSV=208/77 mmhg, SpO2=91.0 %, Resp=21 B/min 12:34 PM 5Fr Pigtail catheter inserted over the wire [facility] oparker 12:34 PM Catheter crossed the aortic valve and was selectively placed in the left ventricle. Pressures recorded on pullback for left heart catheterization. oparker 12:34 PM Bolus angiogram of left Ventricle complete: 12 ml/sec for a total of 30 mls oparker 12:34 PM Catheter removed oparker 12:34 PM 5Fr FR 4 catheter inserted over the wire DNC oparker 12:36 PM RCA angiography performed in multiple views. oparker 12:36 PM Recorded Pressure: Ao, HR=83, Condition=Condition 1 (Aorta) Ao 111/94/104 12:37 PM Catheter removed oparker 12:38 PM HR=93 bpm, EWKO=573/78 mmhg, SpO2=92.0 %, Resp=21 B/min 12:38 PM Inflation device was opened. oparker 12:39 PM PCI lesion in Proximal Circumflex. Pre Stenosis: 100 Pre ROXI Flow: 0: No Flow/No perfusion oparker 12:41 PM Time: 12:25 Patient comfortable and pain free: Yes oparker 12:41 PM Time: 12:25LOC: 4 = Oriented but drowsy oparker 12:41 PM 6Fr RBL 3.5 Convey guide catheter was used to cannulate the PCI vessel successfully. reused? No oparker 12:41 PM .014 PT Graphix 182cm guide wire across target lesion- successful. reused? No oparker 12:41 PM Recorded Pressure: Ao, HR=91, Condition=Condition 1 (Aorta) Ao 124/92/107 12:42 PM Wire removed oparker 12:43 PM 2.0 mm x 12 mm Emerge Monorail balloon across target lesion- successful. reused? No oparker 12:43 PM At 12:43 the ACT was 209 seconds. oparker 12:43 PM Time: 12:43 Heparin 2000 units Intravenous Given by Trenton Stewart RN oparker 12:43 PM HR=89 bpm, NBJU=443/80 mmhg, SpO2=92.0 %, Resp=22 B/min 12:44 PM Balloon inflated @ 8 andres for 10 seconds oparker 12:46 PM Time: 12:45 Nitroglycerin 100 mcg Intracoronary Given by Lewis Palomo MD oparker 12:46 PM Recorded Pressure: Ao, HR=78, Condition=Condition 1 (Aorta) Ao 105/78/92 12:46 PM Balloon inflated @ 12 andres for 17 seconds oparker 12:47 PM Time: 12:47 Nitroglycerin 200 mcg Intracoronary Given by Lewis Palomo MD oparker 12:48 PM HR=75 bpm, OPVI=616/65 mmhg, SpO2=90.0 %, Resp=24 B/min 12:50 PM Coronary Dominance: Co-dominant oparker 12:51 PM Balloon catheter removed intact. oparker 12:52 PM 3.0mm x 16mm Synergy drug-eluting stent across target lesion- successful Lot #[id number] oparker 12:53 PM Stent deployed @ 12 andres for 19 seconds oparker 12:53 PM HR=72 bpm, PEYG=529/65 mmhg, SpO2=92.0 %, Resp=24 B/min 12:56 PM Pt graphix out of circumflex, advanced to LAD oparker 12:56 PM Time: 12:41 Patient comfortable and pain free: Yes oparker 12:56 PM Recorded Pressure: Ao, HR=82, Condition=Condition 1 (Aorta) Ao 102/84/94 12:57 PM Stent delivery system removed intact. oparker 12:58 PM 2.0 mm x 12 mm Emerge Monorail balloon across target lesion- successful. reused? Yes oparker 12:58 PM HR=76 bpm, KHWW=841/69 mmhg, SpO2=93.0 %, Resp=24 B/min 12:59 PM Lesion found in Mid LAD. Pre Stenosis: 90 Pre ROXI Flow: 3: Complete and Brisk Flow/Perfusion oparker 12:59 PM Balloon inflated @ 14 andres for 12 seconds oparker 01:00 PM Balloon inflated @ 14 andres for 15 seconds oparker 01:00 PM Balloon catheter removed intact. oparker 01:02 PM 3.5mm x 20mm Synergy drug-eluting stent across target lesion- successful Lot #[id number] oparker 01:03 PM HR=75 bpm, ZNOI=290/74 mmhg, SpO2=91.0 %, Resp=22 B/min 01:04 PM Stent deployed @ 11 andres for 22 seconds oparker 01:04 PM Recorded Pressure: Ao, HR=88, Condition=Condition 1 (Aorta) Ao 100/84/92 01:05 PM Stent delivery system removed intact. oparker 01:06 PM 3.5 mm x 12mm NC Trek Rx balloon across target lesion- successful. reused? No oparker 01:07 PM Balloon inflated @ 16 andres for 12 seconds oparker 01:08 PM Balloon catheter removed intact. oparker 01:08 PM Recorded Pressure: Ao, HR=76, Condition=Condition 1 (Aorta) Ao 112/81/96 01:08 PM HR=76 bpm, LOAW=832/73 mmhg, SpO2=96.0 %, Resp=26 B/min 01:09 PM 2.0 mm x 12 mm Emerge Monorail balloon across target lesion- successful. reused? Yes oparker 01:09 PM PCI lesion in 1st Diagonal. Pre Stenosis: 80 Pre ROXI Flow: 2: Partial Flow/Perfusion (> 1 but < 3) oparker 01:11 PM Balloon catheter removed intact. oparker 01:11 PM Time: 12:56 Patient comfortable and pain free: Yes oparker 01:11 PM Time: 12:56LOC: 5 = Fully awake and oriented or at pre-proc level oparker 01:11 PM 2.0 mm x 12 mm Emerge Monorail balloon across target lesion- successful. reused? No oparker 01:12 PM Recorded Pressure: Ao, HR=75, Condition=Condition 1 (Aorta) Ao 104/74/89 01:13 PM HR=80 bpm, BZPG=345/73 mmhg, SpO2=94.0 %, Resp=24 B/min 01:13 PM Guide wire removed intact. oparker 01:14 PM Balloon catheter removed intact. oparker 01:14 PM Guide catheter removed intact. oparker 01:14 PM Procedure completed at 13:14 12/31/2018 oparker 01:14 PM Did you address ROXI flow and Dominance? YesCoronary Dominance: Co-dominant oparker 01:15 PM Sign out completed: Radiation Dose 549.70 mGy, 63.2 Gy/cm2 Fluoro Time: 14.3 Isovue 370 - 200ml contrast 224 ml given by Lewis Palomo MD, [facility]. Complications: None. 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 Sedation minutes 60. Cardiac Rehab Consult needed: Yes. Confirmed administered medications: Yes oparker 01:16 PM Isovue 370 - 200ml,3 Bottle(s) used. oparker 01:16 PM Arterial sheath pulled, Vasc Band closure device used and was Successful S/N. oparker 01:16 PM 10 ml air in Vasc Band. oparker 01:16 PM Estimated Blood Loss: less than 20cc oparker 01:16 PM Post ECG NSR oparker 01:16 PM Post Blood Pressure 110/73 oparker 01:17 PM 13:17 Post Pulses Bilateral DP 1+ oparker 01:17 PM Information taught Cardiac Cath, PCI, MANAGER STORY/Stent, and Vasc Band oparker 01:17 PM Education needs Procedure, Plan of Care, and Disease Process oparker 01:17 PM Learning barriers :None oparker 01:17 PM Education Methods Verbal oparker 01:17 PM Education evaluation Able to repeat information oparker 01:17 PM Site status No bleeding/ No Hematoma - Rt Wrist as reported by Ginna Gaviria RT (R) at 13:17 oparker 01:18 PM HR=76 bpm, RVBH=567/73 mmhg, SpO2=94.0 % 01:19 PM Time: 13:18 Brilinta 180 mg Orally Given by Trenton Stewart RN oparker 01:20 PM Report given to Melany SINGH Pt taken to E Room #20. 13:20 oparker 01:20 PM Complications: None oparker 01:20 PM No family for the doctor to talk to oparker 01:24 PM Patient out of room: 13:24 opamicki Complications Complication None None Hemodynamics Pressures Site Systolic/A Wave Diastolic/V Wave Mean AO 86 71 79 LV 107 12 24 LV 114 17 40 AO 113 84 97 AO 111 94 104 AO 124 92 107 AO 105 78 92 AO 102 84 94 AO 100 84 92 AO 112 81 96 AO 104 74 89 Post Procedure Information Blood Pressure: 110/73 mmHg Rhythm: NSR Post procedural instructions were given Closure Device Time Device Success/Fail 12/31/2018 1:18:00 PM Mechanical Compression Successful Site Checks Time Location Status Staff Sheath In? Note 01:17 PM Rt Wrist No bleeding/ No Hematoma Ginna Gaviria RT (R) Pulses Time Site Pre-Procedure Post-Procedure Note Bilateral DP 2+ Bilateral radial 2+ 1:17:00 PM Bilateral DP 1+ Updated by Esteban Grace RN on 12/31/2018 1:24:56 PM electronically signed on 12/31/2018 1:26:44 PM with status of Final
[2018-12-31] MEDS: *HR* Heparin 5,000 UNIT/ML VIAL SQ SCH (17:49)
[2018-12-31] MEDS: *HR* Ticagrelor 90 MG TABLET PO SCH (20:27)
[2019-01-01 02:28] LABS: Basophils % 0.2 %; Eosinophils % 0.3 %; Hematocrit 43.2 % (37.5-50.1); Hemoglobin 13.9 g/dL (12.9-16.9); Immature Granulocytes % 0.5 % (0-4); Lymphocytes # 0.9 K/mcL (0.6-4.6); Lymphocytes % 7.7 %; Mean Corpuscular HGB Conc 32.2 g/dL (31.6-35.5); Mean Corpuscular Hemoglobin 27.9 pg (28.0-33.3); Mean Corpuscular Volume 86.6 fL (83.0-100.0); Monocytes # 0.5 K/mcL (0.0-1.3); Monocytes % 3.9 %; Neutrophils # 10.5 K/mcL (1.6-8.9); Platelet Count 182 K/mcL (140-400); Red Blood Count 4.99 M/mcL (4.19-5.50); Red Cell Distribution Width 14.3 % (11.5-14.5); Segmented Neutrophils % 87.4 %
[2019-01-01 02:45] LABS: BUN/Creatinine Ratio 12 (6-26); Blood Urea Nitrogen 11 mg/dL (6-20); Calcium 8.6 mg/dL (8.6-10.3); Carbon Dioxide 27 mEq/L (23-29); Chloride 99 mEq/L (98-107); Glucose 131 mg/dL (70-105); Magnesium 1.9 mg/dL (1.6-2.6); Osmolality,Calculated 283 (280-300); Potassium 3.6 mEq/L (3.5-5.1); Sodium 136 mEq/L (136-145); eGFR For African Americans > 60 (> 60); eGFR For Non-African Americans > 60 (> 60)
[2019-01-01] MEDS: *HR* Heparin 5,000 UNIT/ML VIAL SQ SCH ×2 (06:41→18:31)
[2019-01-01] MEDS: Aspirin 81 MG TAB.CHEW PO SCH (09:41)
[2019-01-01] MEDS: *HR* Ticagrelor 90 MG TABLET PO SCH ×2 (09:41→20:53)
--- NOTE | 2019-01-01 10:29 | Internal Med Progress Note ---
Hospitalist Progress Note - Encounter Date of Encounter: 01/01/19 Time of Encounter: 08:30 - Subjective Interval History: Underwent left heart catheterization yesterday uneventfully with PCI to mLCX and mLAD. Patient denies any recurrence of chest pain but had been coughing more frequently. Also had a temperature of 101.6 this morning and tachycardic at 110. Otherwise, denies any nausea/vomiting, abdominal pain, change in bowel habits, or dysuria. - Exam Vitals: Temp Pulse Resp BP Pulse Ox 101.6 F H 104 22 104/75 97 01/01/19 07:49 01/01/19 07:49 01/01/19 07:49 01/01/19 07:49 01/01/19 07:49 Exam: General: Alert and oriented, not in acute distress. Cardiovascular:Normal S1 & S2, No JVD. Pulse regular. Lungs: Bibasilar rales, no obvious wheezes/rhonchi auscultated Abdomen:Soft, non-tender, no rigidity. Extremities: R radial site without hematoma Neurological:Normal cognition and motor skills. Non-focal Skin:Normal color, no rash, no lesions. - Assessment and Plan (1) ACS (acute coronary syndrome) Current Visit: Yes Status: Acute Assessment and Plan: presented with CP and found to have trop 0.18-2.5 -11.42 EKG did not meet criteria for STEMI hence was started on DAPT and hep gtt followed by [facility] yesterday PCI to mLCX and mLAD, residual diagonal disease to be managed medically. Appreciate cardiology input Continue dual-antiplatelets, bb, and statin. echocardiogram pending (2) Fever Current Visit: Yes Status: Acute Assessment and Plan: Developed fever of 101.6 x 1 episode and cough. CXR was unremarkable on presentation will obtain respiratory viral panel and monitor on PO Azithromycin if he spikes another fever, will obtain blood cultures, CXR, and UA (3) HLD (hyperlipidemia) Current Visit: Yes Status: Chronic Assessment and Plan: Started on Lipitor as above (4) DVT prophylaxis Current Visit: Yes Status: Acute Assessment and Plan: SQ hep - Time Spent with Patient Total time spent is greater than 50% in coordination of care (as documented) at patient's floor/unit and/or counseling patient: 25 - 35 minutes Plan of Care Discussed with: patient Internal Medicine: Result - Labs CBC & Chem 7: 01/01/19 01:31 01/01/19 01:31 Labs: Short CBC 01/01/19 Range/Units 01:31 WBC 12.0 H (4.3-11.1) K/mcL Hgb 13.9 (12.9-16.9) g/dL Hct 43.2 (37.5-50.1) % Plt Count 182 (140-400) K/mcL Neutrophils # 10.5 H (1.6-8.9) K/mcL BMP 01/01/19 01:31 Sodium 136 Potassium 3.6 Chloride 99 Carbon Dioxide 27 BUN 11 Creatinine 0.90 Glucose 131 H Calcium 8.6 Cardiac Enzymes 12/31/18 Range/Units 15:41 Troponin I > 73.00 H* (< 0.04) ng/mL - ABG Interpretation ABG results: PT/INR, D-dimer PT 11.0 Seconds (9.4-12.1) 12/30/18 21:10 Consult Discharge Plan - Plan Referrals: NONE,PCP [Primary Care Provider] - (2) Fever Qualifiers: Fever type: unspecified Qualified Code(s): R50.9 - Fever, unspecified (3) HLD (hyperlipidemia) Qualifiers: Hyperlipidemia type: mixed hyperlipidemia Qualified Code(s): E78.2 - Mixed hyperlipidemia
[2019-01-01] MEDS: Azithromycin 250 MG TABLET PO SCH (11:27)
[2019-01-01 11:39] LABS: Adenovirus Not Detected (Not Detect); Bordetella Pertussis Not Detected (Not Detect); Chlamydophila pneumoniae Not Detected (Not Detect); Coronavirus 229E Not Detected (Not Detect); Coronavirus HKU1 Not Detected (Not Detect); Coronavirus NL63 Not Detected (Not Detect); Coronavirus OC43 Not Detected (Not Detect); Human Metapneumovirus Not Detected (Not Detect); Human Rhinovirus/Enterovirus Not Detected (Not Detect); Influenza A Subtype 2009 H1 Not Detected (Not Detect); Influenza A Untypeable Not Detected (Not Detect); Influenza B Not Detected (Not Detect); Mycoplasma pneumoniae Not Detected (Not Detect); Parainfluenza Virus 1 Not Detected (Not Detect); Parainfluenza Virus 2 Not Detected (Not Detect); Parainfluenza Virus 3 Not Detected (Not Detect); Parainfluenza Virus 4 Not Detected (Not Detect); Respiratory Syncytial Virus Not Detected (Not Detect)
--- NOTE | 2019-01-01 12:22 | Cardiology Progress Note ---
Date of Encounter: 01/01/19 Time of Encounter: 10:30 Assessment and Plan (1) ACS (acute coronary syndrome) Current Visit: Yes Status: Acute Troponins .18, 2.48, 11.42 & EKG with ST changes. [facility] 12/31/18: LV is normal, EF 60%, successful PTCA/DONALD to proximal Circ (culprit for acute ND) and MID LAD. Patient was chest pain free at time of eval today. Right radial access site bandage removed- area is clean, dry & intact. Echo report pending. Pt has been started on ASA, Brilinta, Statin & BB. Cardiac Rehab ordered. Will require 1yr uninterrupted DAPT (ASA & Brilinta) - discussed with patient. Discussion w patient/family: The assessment and plan as outlined above was discussed with the patient and/or family members who expressed understanding and agreement. All questions were answered. Thank you for involving us in the care of your patient. Please call with any questions. The above assessment and plan will be discussed with Dr. Ordaz and I will make changes as necessary. Subjective Principal diagnosis: ACS Interval history: Doing well this morning, chest pain free with no complaints. Objective Vital Signs, Last 4 Hours Temp Pulse Resp BP 01/01/19 11:18 98.4 F 90 22 132/79 General: Conversant, No Apparent Distress HEENT: Atraumatic, Normocephaly, Mucus Membranes Moist Neuro: Alert and responsive, No focal deficits noted Skin: Other (Right radial access site bandage removed, site is clean, dry & intact) Extremities: No Clubbing, No Cyanosis, No Edema, Normal Pulses Results 01/01/19 01:31 01/01/19 01:31 Lab Results 12/31/18 01/01/19 01/01/19 15:41 01:31 01:31 WBC 12.0 H Hgb 13.9 Hct 43.2 Plt Count 182 Sodium 136 Potassium 3.6 Chloride 99 Carbon Dioxide 27 BUN 11 Creatinine 0.90 Glucose 131 H Calcium 8.6 Magnesium 1.9 Troponin I > 73.00 H* - Imaging and Cardiology Echo: pending Cardiac cath: report reviewed Other Results: 12hr tele reviewed: average HR 98, NSR, no events noted. Consult Discharge Plan - Plan Referrals: NONE,PCP [Primary Care Provider] -
--- NOTE | 2019-01-01 13:04 | Electrocardiograph Report ---
[address] [address] Test Date: 2018-12-30 Pat Name: Omid Mcneill Department: [id number] Room: 2NE20 Gender: M Supervisor Drapery Hanging: : 1965 Requested By: Palomo Cruz Order Number: [id number] Reading MD: Lewis Palomo Measurements Intervals [place] Rate: 67 P: 16 SC: 146 QRS: 43 QRSD: 97 T: 89 QT: 384 QTc: 406 Interpretive Statements Sinus rhythm Inferoposterior infarct, acute (RCA) Electronically Signed On 01-01-2019 13:02:28 EDT by Lewis Palomo
--- NOTE | 2019-01-01 13:05 | Electrocardiograph Report ---
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
--- NOTE | 2019-01-01 13:10 | Electrocardiograph Report ---
[address] [place] [address] [address] Test Date: 2018-12-31 Pat Name: Omid Mcneill Department: 111 Room: 2NE20 Gender: M Vial Gauger: : 1965 Requested By: Eugene Vanegas Order Number: [id number] Reading MD: Lewis Palomo Measurements Intervals [place] Rate: 112 P: 65 NV: 171 QRS: 20 QRSD: 89 T: 71 QT: 322 QTc: 388 Interpretive Statements SINUS TACHYCARDIA NONSPECIFIC ST & T-WAVE ABNORMALITY Electronically Signed On 01-01-2019 13:08:33 EDT by Lewis Palomo
[2019-01-02] MEDS: *HR* Heparin 5,000 UNIT/ML VIAL SQ SCH (05:39)
[2019-01-02 06:12] LABS: Basophils % 0.2 %; Eosinophils # 0.1 K/mcL (0.0-0.6); Eosinophils % 0.9 %; Hematocrit 41.1 % (37.5-50.1); Hemoglobin 13.2 g/dL (12.9-16.9); Immature Granulocytes % 0.8 % (0-4); Lymphocytes # 1.3 K/mcL (0.6-4.6); Lymphocytes % 13.1 %; Mean Corpuscular HGB Conc 32.1 g/dL (31.6-35.5); Mean Corpuscular Hemoglobin 27.8 pg (28.0-33.3); Mean Corpuscular Volume 86.5 fL (83.0-100.0); Mean Platelet Volume 11.7 fL (9.4-12.4); Monocytes # 0.7 K/mcL (0.0-1.3); Monocytes % 7.3 %; Neutrophils # 7.7 K/mcL (1.6-8.9); Platelet Count 121 K/mcL (140-400); Red Blood Count 4.75 M/mcL (4.19-5.50); Red Cell Distribution Width 13.9 % (11.5-14.5); Segmented Neutrophils % 77.7 %; White Blood Count 9.9 K/mcL (4.3-11.1)
[2019-01-02 06:22] LABS: BUN/Creatinine Ratio 16 (6-26); Blood Urea Nitrogen 15 mg/dL (6-20); Calcium 8.6 mg/dL (8.6-10.3); Carbon Dioxide 25 mEq/L (23-29); Chloride 101 mEq/L (98-107); Glucose 97 mg/dL (70-105); Osmolality,Calculated 283 (280-300); Potassium 4.1 mEq/L (3.5-5.1); Sodium 136 mEq/L (136-145); eGFR For African Americans > 60 (> 60); eGFR For Non-African Americans > 60 (> 60)
[2019-01-02 06:40] VITALS: BP 108/75
--- NOTE | 2019-01-02 08:03 | Event Note ---
Date of Encounter: 01/02/19 Time of Encounter: 08:01 - Cardiology Event Note -Echo 01/01: LVEF 45-50%, Mild segmental LV systolic dysfunction, mild MR & TR, mild pHTN. I have arranged follow-up in our office for next week. Continue ASA, Brilinta, BB & Statin. ACEi added per primary team, would recommend close blood pressure monitoring. Cardiology will sign-off at this time. Please re-consult as needed.
[2019-01-02] MEDS: Aspirin 81 MG TAB.CHEW PO SCH (08:40)
[2019-01-02] MEDS: *HR* Ticagrelor 90 MG TABLET PO SCH (08:40)
[2019-01-02] MEDS: Azithromycin 250 MG TABLET PO SCH (08:41)
--- NOTE | 2019-01-02 09:09 | Discharge Summary ---
- NOTES TO OUTPATIENT PROVIDER Notes to Outpatient Provider: Follow up with cardiology and cardiac rehab as outpt Date of Encounter: 01/02/19 Time of Encounter: 07:30 - Discharge Diagnosis (1) ACS (acute coronary syndrome) Priority: Primary Status: Acute (2) Fever Priority: Secondary Status: Acute Qualifiers: Fever type: unspecified Qualified Code(s): R50.9 - Fever, unspecified (3) HLD (hyperlipidemia) Priority: Secondary Status: Chronic Qualifiers: Hyperlipidemia type: mixed hyperlipidemia Qualified Code(s): E78.2 - Mixed hyperlipidemia (4) DVT prophylaxis Priority: Secondary Status: Acute Hospital course: Mr. Mcneill is a 53 year old male with no known past medical history who was admitted due to NSTEMI. Trop 0.18 - 2.48 - 11.42. Initially there was a concern for ST elevations in III, AVF, and V6 but was deeemed by interventional cardio logist that these changes were not quite sufficient for STEMI alert. After being started on DAPT and hep gtt, pt underwent LHC on 12/31 with PCI to pLCX and mLAD. Echo showed EF 45-50%. Post-procedure, pt developed fever of 101.6 with imaging findings consistent with bronchitis. Also developed mildly tachycardia and leukocytosis. He was subsequently started on Azithromycin with clinical improvement and, despite having temp of 100.2, he wanted to continue Azithromycin at home since he is overall clinically improving. He will be discharged on DAPT, bb, statin, GISELLE-i, and a total of 5 day course of Azithromycin. Patient is to follow-up with cardiology as outpatient and establish PCP care. Discharge discussed with: patient, nurse, safety and health consultant - Time Spent with Patient Total time spent providing and/or coordinating discharge services: 33 mins - Discharge Medications Prescriptions: New Aspirin 81 mg PO DAILY #30 tab.chew Ticagrelor [Brilinta] 90 mg PO BID #60 tablet Atorvastatin [Lipitor] 40 mg PO HS #30 tablet Metoprolol [Lopressor] 25 mg PO BID #60 tablet Lisinopril [Zestril] 2.5 mg PO DAILY #30 tablet Azithromycin [Zithromax] 500 mg PO DAILY 3 Days #6 tablet Home Medications: Aspirin 81 mg PO DAILY #30 tab.chew 01/02/19 [Rx] Atorvastatin [Lipitor] 40 mg PO HS #30 tablet 01/02/19 [Rx] Azithromycin [Zithromax] 500 mg PO DAILY 3 Days #6 tablet 01/02/19 [Rx] Lisinopril [Zestril] 2.5 mg PO DAILY #30 tablet 01/02/19 [Rx] Metoprolol [Lopressor] 25 mg PO BID #60 tablet 01/02/19 [Rx] Ticagrelor [Brilinta] 90 mg PO BID #60 tablet 01/02/19 [Rx] Allergies/Adverse Reactions: Allergy/AdvReac Type Severity Reaction Status Date / Time No Known Allergies Allergy Verified 05/01/17 17:07 Date of admission: 12/30/18 23:03 Primary care physician: PCP NONE Consults: 12/30/18 23:03 Consult to Cardiology [CONS] Routine Comment: Consulting Provider: Cardiology Tiffany Reason for Consult: ACS management Call Completed: Yes 12/30/18 23:43 Consult to [employer]ice [CONS] Routine Reason for SW Consult: Pt has no family physician for F/U care 12/31/18 13:18 Consult to Cardiac Rehabilitation-Phase1 [CONS] Routine Comment: Reason for Consult: post op diagnostic cath Call Completed: Yes - Constitutional Vitals: Temp Pulse Resp BP Pulse Ox 99.6 F 93 16 108/75 91 01/02/19 06:37 01/02/19 06:37 01/02/19 06:37 01/02/19 06:37 01/02/19 06:37 Exam: General: Alert and oriented, not in acute distress. Cardiovascular:Normal S1 & S2, No JVD. Pulse regular. Lungs: Clear to auscultation Abdomen:Soft, non-tender, no rigidity. Extremities: R radial site without hematoma Neurological:Normal cognition and motor skills. Non-focal Skin:Normal color, no rash, no lesions. - Patient Status Disposition: Home, Self-Care Condition: Fair Functional capacity at discharge: independent ambulation Overall status at discharge: patient is progressing back to baseline - Discharge Instructions Instructions: Chest Pain (DC) Follow Up With: NONE,PCP [Primary Care Provider] - Lewis Palomo MD [Partnered Physician] - - Diet and Activity Activity: as per the cardiac rehab Diet: low salt diet
--- NOTE | 2019-01-02 16:03 | Electrocardiograph Report ---
[address] [address] Test Date: 2018-12-31 Pat Name: Omid Mcneill Department: 111 Room: 2NE20 Gender: M Coding Team Lead: : 1965 Requested By: Vicente Muñoz Order Number: [id number] Reading MD: Ginna Muhammad Measurements Intervals Alex Rate: 84 P: [place]: 0 QRS: 133 QRSD: 106 T: 141 QT: 352 QTc: 393 Interpretive Statements Normal sinus rhythm Lead II not suitable for interpretation Electronically Signed On 01-02-2019 16:02:12 EDT by Ginna Muhammad
== END 2019-01-02 15:22 | disposition home or self-care (01) | DRG 247 ==
LOC: 2NENU 20:59 → EMEROOARM 20:59 → SUATTDRO 23:03 → 2NENU 23:14
PROVIDERS: ADMIT Internal Medicine; ATTEND Internal Medicine

== ENCOUNTER 2021-03-20 10:26 | Inpatient (IN) ==
[~2021-03-20 10:26] MED LIST: *HR* FentaNYL (PF) 100 MCG/2 ML VIAL IVP PRN; *HR* HYDROmorphone PF 0.5 MG/0.5 ML SYRINGE IVP PRN; Acetaminophen IV 1,000 MG/100 ML BAG IVPB ONE; Famotidine 20 MG/2 ML VIAL IVP ONE; Ondansetron 4 MG/2 ML VIAL IVP PRN
[2021-03-20] MEDS ORDERED: *HR* Succinylcholine 200 MG/10 ML VIAL IVP ONE (10:55)
[2021-03-20] MEDS ORDERED: *HR* Propofol 200 MG/20 ML VIAL IVP ONE (10:55)
[2021-03-20] MEDS ORDERED: Ringers Solution, Lactated 1,000 ML IVC SCH (11:15)
[2021-03-20] MEDS ORDERED: *HR* Midazolam HCl 2 MG/2 ML VIAL ONE (11:43)
[2021-03-20] MEDS ORDERED: *HR* FentaNYL (PF) 100 MCG/2 ML VIAL ONE (11:43)
[2021-03-20] MEDS ORDERED: cefOXitin 2,000 MG in 0.9 % Sodium Chloride Mini Bag 100 ML IVPB ONE (11:43)
[2021-03-20] MEDS ORDERED: EPHEDrine 50 MG/ML VIAL ONE (13:05)
[2021-03-20] MEDS ORDERED: Ondansetron 4 MG/2 ML VIAL ONE ×2 (13:09→16:01)
[2021-03-20] MEDS ORDERED: *HR* Rocuronium Bromide 50 MG/5 ML VIAL ONE ×2 (13:26→15:35)
[2021-03-20] MEDS ORDERED: *HR* HYDROMORPHONE 2 MG/ML VIAL ONE (14:16)
[2021-03-20] MEDS ORDERED: Naloxone 0.4 MG/ML INJ IVP PRN (17:25)
[2021-03-20] MEDS ORDERED: Ondansetron 4 MG/2 ML VIAL IVP PRN (17:25)
[2021-03-20] MEDS ORDERED: Morphine Sulfate Oral CONC 10 MG/0.5 ML ORAL.SYG SL PRN (17:25)
[2021-03-20] MEDS: Ketorolac 30 MG/ML VIAL IVP SCH ×2 (17:31→20:32)
[2021-03-20] MEDS: 0.9 % Sodium Chloride 1,000 ML IVC SCH (20:23)
[2021-03-21] MEDS: cefOXitin 1,000 MG in Water for inj. (sterile) 10 ML IVP SCH ×3 (04:18→13:30)
[2021-03-21 05:09] LABS: BUN/Creatinine Ratio 14 (6-26); Blood Urea Nitrogen 16 mg/dL (6-20); Calcium 8.4 mg/dL (8.6-10.3); Carbon Dioxide 26 mEq/L (23-29); Chloride 102 mEq/L (98-107); Glucose 124 mg/dL (70-105); Osmolality,Calculated 283 (280-300); Potassium 4.5 mEq/L (3.5-5.1); Sodium 135 mEq/L (136-145); eGFR For African Americans > 60 (> 60); eGFR For Non-African Americans > 60 (> 60)
[2021-03-21 05:13] LABS: Basophils % 0.1 %; Hematocrit 38.3 % (37.5-50.1); Hemoglobin 12.5 g/dL (12.9-16.9); Immature Granulocytes % 0.4 % (0-4); Lymphocytes # 0.3 K/mcL (0.6-4.6); Lymphocytes % 2.5 %; Mean Corpuscular HGB Conc 32.6 g/dL (31.6-35.5); Mean Corpuscular Hemoglobin 28.5 pg (28.0-33.3); Mean Corpuscular Volume 87.4 fL (83.0-100.0); Mean Platelet Volume 10.6 fL (9.4-12.4); Monocytes # 0.7 K/mcL (0.0-1.3); Monocytes % 5.7 %; Neutrophils # 11.7 K/mcL (1.6-8.9); Platelet Count 176 K/mcL (140-400); Red Blood Count 4.38 M/mcL (4.19-5.50); Red Cell Distribution Width 13.4 % (11.5-14.5); Segmented Neutrophils % 91.3 %; White Blood Count 12.8 K/mcL (4.3-11.1)
[2021-03-21] MEDS: 0.9 % Sodium Chloride 1,000 ML IVC SCH (06:37)
[2021-03-21] MEDS: Ketorolac 30 MG/ML VIAL IVP SCH ×3 (06:39→17:58)
[2021-03-21] MEDS ORDERED: 0.9 % Sodium Chloride 1,000 ML IVC SCH (11:00)
[2021-03-21] MEDS: lisinopriL 5 MG TABLET PO SCH (11:16)
[2021-03-21] MEDS: *HR* Heparin 5,000 UNIT/ML VIAL SQ SCH (17:58)
[2021-03-22] MEDS: Ketorolac 30 MG/ML VIAL IVP SCH ×4 (01:59→17:47)
[2021-03-22] MEDS: *HR* OxyCODONE/APAP 5/325 TABLET PO PRN (03:45)
[2021-03-22 05:06] LABS: Basophils % 0.1 %; Eosinophils % 0.4 %; Hemoglobin 11.7 g/dL (12.9-16.9); Immature Granulocytes % 0.4 % (0-4); Lymphocytes # 0.6 K/mcL (0.6-4.6); Lymphocytes % 6.9 %; Mean Corpuscular HGB Conc 31.6 g/dL (31.6-35.5); Mean Corpuscular Hemoglobin 28.3 pg (28.0-33.3); Mean Corpuscular Volume 89.4 fL (83.0-100.0); Mean Platelet Volume 10.6 fL (9.4-12.4); Monocytes # 0.8 K/mcL (0.0-1.3); Monocytes % 8.7 %; Neutrophils # 7.5 K/mcL (1.6-8.9); Platelet Count 145 K/mcL (140-400); Red Blood Count 4.14 M/mcL (4.19-5.50); Red Cell Distribution Width 13.9 % (11.5-14.5); Segmented Neutrophils % 83.5 %
[2021-03-22 05:12] LABS: BUN/Creatinine Ratio 17 (6-26); Blood Urea Nitrogen 19 mg/dL (6-20); Calcium 8.9 mg/dL (8.6-10.3); Carbon Dioxide 26 mEq/L (23-29); Chloride 105 mEq/L (98-107); Glucose 105 mg/dL (70-105); Osmolality,Calculated 289 (280-300); Phosphorous 2.3 mg/dL (2.7-4.5); Potassium 4.2 mEq/L (3.5-5.1); Sodium 138 mEq/L (136-145); eGFR For African Americans > 60 (> 60); eGFR For Non-African Americans > 60 (> 60)
[2021-03-22] MEDS: *HR* Heparin 5,000 UNIT/ML VIAL SQ SCH ×2 (06:27→17:46)
[2021-03-22] MEDS: lisinopriL 5 MG TABLET PO SCH (08:09)
[2021-03-22] MEDS: 0.9 % Sodium Chloride 1,000 ML IVC SCH (17:45)
[2021-03-23] MEDS: Ketorolac 30 MG/ML VIAL IVP SCH ×2 (01:17→05:47)
[2021-03-23 02:01] LABS: Basophils % 0.1 %; Eosinophils # 0.1 K/mcL (0.0-0.6); Eosinophils % 0.8 %; Hematocrit 37.5 % (37.5-50.1); Immature Granulocytes % 0.6 % (0-4); Lymphocytes # 0.5 K/mcL (0.6-4.6); Lymphocytes % 6.7 %; Mean Corpuscular Hemoglobin 29.1 pg (28.0-33.3); Mean Corpuscular Volume 90.8 fL (83.0-100.0); Mean Platelet Volume 10.7 fL (9.4-12.4); Monocytes # 0.7 K/mcL (0.0-1.3); Monocytes % 10.1 %; Neutrophils # 5.9 K/mcL (1.6-8.9); Platelet Count 177 K/mcL (140-400); Red Blood Count 4.13 M/mcL (4.19-5.50); Red Cell Distribution Width 13.9 % (11.5-14.5); Segmented Neutrophils % 81.7 %; White Blood Count 7.2 K/mcL (4.3-11.1)
[2021-03-23 02:11] LABS: BUN/Creatinine Ratio 21 (6-26); Blood Urea Nitrogen 26 mg/dL (6-20); Calcium 7.9 mg/dL (8.6-10.3); Carbon Dioxide 23 mEq/L (23-29); Chloride 108 mEq/L (98-107); Glucose 92 mg/dL (70-105); Osmolality,Calculated 290 (280-300); Potassium 4.1 mEq/L (3.5-5.1); Sodium 138 mEq/L (136-145); eGFR For African Americans > 60 (> 60); eGFR For Non-African Americans > 60 (> 60)
[2021-03-23] MEDS: 0.9 % Sodium Chloride 1,000 ML IVC SCH ×2 (03:52→14:08)
[2021-03-23] MEDS: *HR* Heparin 5,000 UNIT/ML VIAL SQ SCH ×2 (05:48→17:49)
[2021-03-23] MEDS: lisinopriL 5 MG TABLET PO SCH (09:25)
[2021-03-23] MEDS ORDERED: NON-FORMULARY MEDICATION 1 EACH EACH (Lisinopril [Lisinopril] 2.5 MG Tablet) PO SCH (09:30)
[2021-03-24] MEDS: 0.9 % Sodium Chloride 1,000 ML IVC SCH (00:21)
[2021-03-24 02:57] LABS: BUN/Creatinine Ratio 20 (6-26); Blood Urea Nitrogen 17 mg/dL (6-20); Calcium 7.9 mg/dL (8.6-10.3); Carbon Dioxide 17 mEq/L (23-29); Chloride 110 mEq/L (98-107); Glucose 95 mg/dL (70-105); Osmolality,Calculated 283 (280-300); Potassium 4.6 mEq/L (3.5-5.1); Sodium 136 mEq/L (136-145); eGFR For African Americans > 60 (> 60); eGFR For Non-African Americans > 60 (> 60)
[2021-03-24] MEDS: *HR* Heparin 5,000 UNIT/ML VIAL SQ SCH (06:00)
[2021-03-24] MEDS ORDERED: Ibuprofen 400 MG TABLET PO STA (06:40)
[2021-03-24] MEDS ORDERED: Aspirin 81 MG TAB.CHEW ONE (07:15)
[2021-03-24] MEDS: lisinopriL 5 MG TABLET PO SCH (07:25)
[2021-03-24] MEDS: *HR* OxyCODONE/APAP 5/325 TABLET PO PRN ×2 (07:26→13:40)
[2021-03-24] MEDS ORDERED: Aspirin 81 MG TAB.CHEW PO SCH (09:00)
[2021-03-24] MEDS ORDERED: polyethylene glycoL 3350 17 GM POWD.PACK PO SCH (09:00)
[2021-03-24 11:33] VITALS: BP 100/58; PULSE 63; TEMP 98.6; O2SAT 92
== END 2021-03-24 16:13 | disposition home health service (06) | DRG 330 ==
LOC: SAMDAY 10:26 → 3ANU 17:06
PROVIDERS: ADMIT Surgery; ATTEND Surgery